=== PATIENT | male | born 1950 | race Caucasian/White ===

== ENCOUNTER → 2022-10-20 | Outpatient (CLI) | payer MEDICARE, OTHER ==
--- NOTE | 2022-10-20 12:24 | PCM.ECHO ---
APPROVED REPORT EXAM: Comprehensive 2D, Doppler, and color-flow Echocardiogram. Patient Location: OUT-PATIENT Indications Aneurysm of ascending aorta without rupture. 2D Dimensions RVDd 2.80 cm (0.4-1.4cm/m2) LVOT Diameter 2.44 (1.8-2.4cm) LVEF(%) 62.62 (>50%) M-Mode Dimensions RVDd 1.15 (2.1-3.2cm) Left Atrium(MM) 5.25 (2.5-4.0cm) IVSd 0.95 (0.7-1.1cm) Aortic Root 2.95 (2.2-3.7cm) LVDd 6.40 (4.0-5.6cm) Aortic Cusp Exc 1.50 (1.5-2.0cm) PWd 0.85 (0.7-1.1cm) MV EPSS 0.77 (<0.5cm) IVSs 1.25 cm FS (%) 30.45 % LVDs 4.45 (2.0-3.8cm) ESV(Teich) 91.10 ml PWs 1.60 cm LVEF(%) 56.81 (>50%) Volumes Biplane 2D LV Volumes Biplane 2D LA Volumes LVEDv A4C 143.18 mL LA ESV Index LVESv A4C 53.52 mL Aortic Valve AoV Peak Gregg. 1.35 m/s AoV VTI 32.40 cm AO Peak GR. 7.65 mmHg AO Mean GR. 3.75 mmHg DEDRICK (VMAX) 2.59 cm2 Mitral Valve MV E Velocity 0.65m/s MR Peak Gr. 53.85mmHg MV DECEL TIME 266.90ms MV A Velocity 0.65m/s TDI E/Lateral E' 0.40 E/Medial E' 0.65 Tricuspid Valve TR P. Velocity 1.70m/s RAP ESTIMATE 8.00mmHg TR Peak Gr. 12.63mmHg LEFT VENTRICLE The left ventricle is normal size. The left ventricular systolic function is normal. The left ventricular ejection fraction is within the normal range. There is normal left ventricular wall thickness. There is normal LV segmental wall motion. There is no ventricular septal defect visualized. No left ventricle thrombus noted on this study. LVEF is 55-60%. RIGHT VENTRICLE The right ventricle is normal size. There is normal right ventricular wall thickness. ATRIA The left atrium size is normal. The right atrium size is normal. The interatrial septum is intact with no evidence for an atrial septal defect. AORTIC VALVE Moderate aortic valve calcifications. There is no aortic valvular stenosis. No aortic regurgitation is present. There is no aortic valvular vegetation. MITRAL VALVE The mitral valve is normal in structure. There is no mitral valve stenosis. Mild to moderate mitral regurgitation. There is no evidence of mitral valve vegetations. TRICUSPID VALVE The tricuspid valve is normal in structure. There is no tricuspid valve stenosis. Mild to moderate tricuspid regurgitation. There is no tricuspid valve vegetations. PULMONIC VALVE Pulmonic valve is not well visualized. There is no pulmonic valvular stenosis. Mild pulmonic regurgitation. GREAT VESSELS The aortic root is normal in size. Pulmonary artery is not well visualized. Aortic arch is not well visualized. The IVC is normal in size and collapses >50% with inspiration. PERICARDIUM There is no pericardial effusion. There is no pleural effusion. Other Information Study Quality: Fair <Conclusion> The left ventricular systolic function is normal. LVEF is 55-60%. Mild to moderate mitral regurgitation. Mild to moderate tricuspid regurgitation. Mild pulmonic regurgitation. Electronically signed by : JOSE MONTALVO. 10/20/2022 12:24:12
--- NOTE | 2022-10-20 14:56 | DIREP ---
PROCEDURE:CTA - CHEST (NON CORONARY) COMPARISON:[facility], [place], CT CHEST W/O, 08/22/2021, 03:31 PM. INDICATIONS:ANEURYSM OF ASCENDING AORTA WITHOUT RUPTURE TECHNIQUE:After obtaining the patient's consent, CTA images were obtained without and with non-ionic intravenous contrast material. Multi-planar MIP/3-D images were created to optimize visualization of vascular anatomy. FINDINGS: VASCULATURE:Mild enlargement of the main pulmonary artery measuring 3.3 cm in diameter. Although the study was not optimized for this, no pulmonary arterial filling defects are seen. THORACIC AORTA:Mild aneurysmal dilatation of the ascending and descending thoracic aorta measuring 5.0 and 3.1 cm respectively at the level of the main pulmonary artery. LUNGS:Stable 5 mm calcified granuloma in the left lower lobe. Otherwise no significant pulmonary parenchymal abnormalities are identified. Central airways are patent. MEDIASTINUM/LAURA:Small hiatal hernia. No mass or adenopathy. Partially calcified mediastinal lymph nodes compatible with prior granulomatous disease. CARDIAC:Normal heart size. No significant pericardial effusion. Mild coronary calcifications most prominent in the left main and right coronary arteries. PLEURA:Normal. No mass, effusion, or pneumothorax. CHEST WALL:Small intramuscular lipoma in the left posterolateral chest wall measuring 3.1 x 1.4 cm. No axillary adenopathy. LIMITED ABDOMEN:Scattered calcified splenic granulomata. Mild uncomplicated colonic diverticulosis. BONES:Degenerative changes in the spine with multilevel anterior bridging osteophytes compatible with diffuse idiopathic skeletal hyperostosis. Multiple remote left rib fracture deformities. Mild superior endplate deformity of T4 vertebral body. Open reduction internal fixation of the left clavicle with a malleable plate and screw construct. OTHER:Visualized thyroid is unremarkable. CONCLUSION: 1. Stable mild aneurysmal dilatation of the ascending and descending thoracic aorta. 2. No acute cardiopulmonary findings. 3. Mild superior endplate deformity of T4 vertebral body which appears new compared to the prior chest CT. 4. Enlargement of the main pulmonary artery which can be seen in the setting of pulmonary hypertension. 5. Atherosclerosis including mild coronary artery calcifications. 6. Evidence of prior granulomatous disease. 7. Other incidental findings as detailed above. Dictated by: Yobani Leos M.D. On 10/20/2022 at 02:45 PM
== END | disposition home or self-care (01) ==
LOC: RAD 11:04
PROVIDERS: ATTEND Family Medicine
DX: I08.8 Other rheumatic multiple valve diseases (principal); I71.21 Aneurysm of the ascending aorta, without rupture; I71.23 Aneurysm of the descending thoracic aorta, without rupture
CPT/HCPCS: 93306; 71275; 36415; 82565; Q9965